=== PATIENT | female | born 1955 | race Caucasian/White ===

== ENCOUNTER 2020-04-22 11:13 | Emergency (ER) | payer MEDICARE ==
[2020-04-22 11:31] VITALS: BP 140/76
--- NOTE | 2020-04-22 11:53 | ED Physician Documentation ---
History of Present Illness - Stated complaint Stated Complaint: RT FOOT INJ - Chief complaint Chief Complaint: Ext Problem - Additonal information Additional information: 64-year-old female presents the emergency department for acute right foot and ankle pain. Reports that this a.m. she was painting and a ladder began to tip she fell forward grabbing onto the wall but fell directly onto the right foot. She had immediate pain and swelling bilaterally as well as under the heel. She has been unable to bear weight. She denies pain or injury elsewhere. No loss of consciousness. She does have a history of previous right foot fracture in 2010. pt is declining pain medications at this time Review of Systems Constitutional: reports: Reviewed and negative Nose: reports: Reviewed and negative Throat: reports: Reviewed and negative Cardiac: reports: Reviewed and negative Respiratory: reports: Reviewed and negative GI: reports: Reviewed and negative Musculoskeletal: reports: Joint pain, Joint swelling (right foot and ankle) Neurologic: reports: Reviewed and negative Psychiatric: reports: Reviewed and negative PD PAST MEDICAL HISTORY - Past Medical History Cardiovascular: None Respiratory: None Endocrine/Autoimmune: None - Present Medications Home Medications: Ambulatory Orders Medication Instructions Recorded Confirmed Hydrocodone/Acetaminophen [Chatham 1 each PO TID #20 tablet 04/22/20 5-325 Tablet] - Allergies Allergies/Adverse Reactions: Allergies Allergy/AdvReac Type Severity Reaction Status Date / Time No Known Drug Allergies Allergy Verified 04/22/20 11:31 PD ED PE EXPANDED - General General: Alert, In Pain - Back Back: Normal exam, Other (No pain elicited with deep palpation of the mid thoracic or lumbar spine. Full range of motion of neck in all planes.). No: Vertebral tenderness, Soft tissue tenderness - Extremities Extremities: Right ankle (Significant swelling and ecchymosis bilateral malleolus with tenderness on the bottom of the heel. 2+ DP pulse. No range of motion attempted secondary to pain. No obvious deformity) Results - Vitals Vitals: Vital Signs - 24 hr 04/22/20 11:25 Temperature 37.6 C H Heart Rate 76 Respiratory 16 Rate Blood Pressure 140/76 H O2 Saturation 99 Oxygen O2 Source Room air - Rads (name of study) right ankle Radiology: Final report received (Mid calcaneal body fracture, please correlate with right foot radiograph) right foot Radiology: Final report received (And slightly displaced fracture involving the lateral aspect of anterior to mid calcaneus) PD MEDICAL DECISION MAKING - ED course Complexity details: reviewed results, considered differential, d/w patient, d/w internet sales consultant (Estrella) ED course: 64-year-old female presents the emergency department with acute right foot and ankle pain after a fall from a ladder this a.m. where she fell directly onto the right leg. She denies hitting her head or losing consciousness. She has no pain elsewhere in her spine lumbar thoracic area. X-ray of the foot does show a calcaneal fracture. I discussed the findings with Dr. De La Rosa on-call for orthopedics. He recommends a well-padded posterior splint and follow-up in his office in 2 to 3 days. He did request a noncontrast CT prior to discharge from the emergency department. Findings were discussed with the patient and her partner at the bedside. A limited prescription for Chatham will be provided. Emergent return precautions discussed Departure - Departure Disposition: 01 Home, Self Care Clinical Impression: Right calcaneal fracture Qualifiers: Encounter type: initial encounter Calcaneus location: unspecified portion of calcaneus Fracture type: closed Fracture alignment: displaced Qualified Code(s): S92.001A - Unspecified fracture of right calcaneus, initial encounter for closed fracture Condition: Stable Record reviewed to determine appropriate education?: Yes Follow-Up: Eliud De La Rosa MD [Provider Admit Priv/Credential] - Within 3 Days Prescriptions: Hydrocodone/Acetaminophen [Chatham 5-325 Tablet] 1 each PO TID #20 tablet Comments: Nilsa unfortunately the x-rays show that you have broken your right calcaneus or heel. This is the type of fracture that typically require surgery in the long-term. Please call Dr. De La Rosa's office today to schedule follow-up. He would like to see you on or Tuesday this week and [place]. The splint that you have been placed and should be kept dry if it gets wet return to the ER to have it replaced. I have prescribed you some Vicodin/Chatham for pain. Please be very careful with this it will make you sleepy. It is very important that you keep your foot elevated as much as possible this will help with swelling. This is also the type of fracture in which she cannot bear any weight on the foot or leg. If at any point you have numbness, a cold extremity, difficulty breathing or chest pain please return immediately to the ER
--- NOTE | 2020-04-22 12:30 | XRAY Report ---
PROCEDURE: Foot 3 View RT INDICATIONS: fall; r/o fx TECHNIQUE: 3 views of the foot were acquired. COMPARISON: None FINDINGS: Bones: Acute slightly comminuted fractures involving lateral aspect of anterior to mid calcaneus is s een with slight lateral displacement of fractured fragment. Fracture line is seen extending to inferi or lateral cortex of the calcaneus. No other fracture or dislocation is noted. No suspicious bony les ions. Soft tissues: No tibiotalar joint effusion. Achilles tendon appears normal. IMPRESSION: Acute comminuted and slightly displaced fracture involving lateral aspect of anterior to mid calcaneu s. Reviewed by: Tab Goins MD on 04/22/2020 12:29 PM PDT Approved by: Tab Goins MD on 04/22/2020 12:29 PM PDT Station ID: [id number]
--- NOTE | 2020-04-22 12:31 | XRAY Report ---
PROCEDURE: Ankle 3 View RT INDICATIONS: fall; r/o fx TECHNIQUE: 3 views of the ankle were acquired. COMPARISON: None FINDINGS: Bones: No acute ankle fractures or dislocations. Ankle mortise is normally aligned. Fracture involv ing the mid calcaneal body is seen. No suspicious bony lesions. Soft tissues: Lateral soft tissue swelling is seen. No tibiotalar joint effusion. Achilles tendon a ppears normal. IMPRESSION: 1. No acute ankle fracture or dislocation. Significant lateral ankle soft tissue swelling. 2. Mid calcaneal body fracture, please correlate with right foot radiograph findings. Reviewed by: Tab Goins MD on 04/22/2020 12:30 PM PDT Approved by: Tab Goins MD on 04/22/2020 12:30 PM PDT Station ID: [id number]
[2020-04-22] MEDS: ACETAMINOPHEN 325 MG TABLET PO STA ×2 (12:33→12:37)
[2020-04-22] MEDS ORDERED: HYDROcod/ACETAM 5/325 MG TABLET PO STA (12:37)
--- NOTE | 2020-04-22 14:02 | CT Report ---
PROCEDURE: LOWER EXTREMITY WO - RT INDICATIONS: calcaneal fx TECHNIQUE: Noncontrast 3 mm axial sections acquired of the right ankle and foot, with coronal and sagittal refor mats. COMPARISON: Ankle and foot radiographs from the same day. FINDINGS: Image quality: Excellent. Bones: As seen on the radiographs, again noted is an acute comminuted fracture involving anterior ca lcaneus with fracture lines extending to calcaneocuboid joint, superior calcaneus adjacent to subtala r joint and to the plantar cortex of mid to posterior calcaneus. There is slight medial and lateral d isplacement of the fractured fragments with up to 3 mm diastases at fracture sites. After 2 mm depres lynn along superior cortex of calcaneus adjacent to subtalar joint is seen. There is also a tiny chip fracture involving posterior lateral corner of inferior talus adjacent to subtalar joint with minima lly displaced fracture fragment. There is subtle linear lucency traversing tip of lateral malleolus, a subtle nondisplaced fracture cannot be entirely excluded. This is best seen on sagittal image #20. No other fracture or dislocation is seen. Osteoarthritic changes are noted in midfoot and forefoot cayla ints. Mild osteoarthritic changes in talonavicular joint, tibiotalar joint and subtalar joint are als o seen. No suspicious intraosseous lesion. Soft tissues: Marked soft tissue swelling surrounding ankle joint is seen particularly over lateral malleolus. There is suggestion of small to moderate tibiotalar joint effusion. Plantar fascia is aquilino sly intact. Achilles tendon is intact. No full-thickness ankle tendon rupture is seen. IMPRESSION: 1. Acute comminuted fracture involving anterior calcaneus with fracture line extending to subtalar cayla int, plantar cortex of calcaneus, and calcaneocuboid joint space. Slightly displaced fractured fragme nts are seen. Slight depression at superior cortex of calcaneus along subtalar joint is also seen. 2. Suggestion of tiny chip fracture involving posterior lateral corner of inferior talus adjacent to subtalar joint. 3. Questionable lucency traversing tip of lateral malleolus concerning for a subtle nondisplaced frac ture. 4. Marked soft tissue swelling around ankle joint particularly over lateral malleolus. Small to moder ate tibiotalar joint effusion and subtalar joint effusion. No gross full-thickness tendon rupture. 5. Osteoarthritic changes throughout ankle and foot. Reviewed by: Tab Goins MD on 04/22/2020 2:00 PM PDT Approved by: Tab Goins MD on 04/22/2020 2:00 PM PDT Station ID: [id number]
== END 2020-04-22 14:14 | disposition home or self-care (01) ==
LOC: ED 11:13
DX: S92.021A Displaced fracture of anterior process of right calcaneus, initial encounter for closed fracture (principal); W11.XXXA Fall on and from ladder, initial encounter; Y93.89 Activity, other specified
CPT/HCPCS: 73610; 73630; 73700; 99283; A9270

== ENCOUNTER 2020-05-01 16:20 | Outpatient (CLI) | payer MEDICARE ==
--- NOTE | 2020-05-01 16:24 | XRAY Report ---
PROCEDURE: Calcaneus RT INDICATIONS: R CALCANEUS FX TECHNIQUE: Two views of the calcaneus were acquired. COMPARISON: 04/22/2020 FINDINGS: Bones: Redemonstration of comminuted, intra-articular fracture of the mid to anterior calcaneus. Alig nment appears stable. Fracture line appears more conspicuous likely related to reactive changes of fr acture healing. Remainder of the imaged osseous structures appear intact. No suspicious bony lesions. Soft tissues: No suspicious calcifications. Achilles tendon appears normal. Persistent soft tissue swelling overlying the right foot and lateral malleolus. IMPRESSION: Stable appearance and alignment of comminuted, minimally displaced fracture of the calcaneus with int ra-articular extension to the subtalar joint. Reviewed by: Terrance Rodrigues MD on 05/01/2020 4:23 PM PDT Approved by: Terrance Rodrigues MD on 05/01/2020 4:23 PM PDT Station ID: [id number]
--- NOTE | 2020-05-01 17:01 | XRAY Report ---
PROCEDURE: Ankle 3 View RT INDICATIONS: R ANKLE PAIN TECHNIQUE: 3 views of the ankle were acquired. COMPARISON: 04/22/2020 FINDINGS: Bones: Redemonstration of comminuted intra-articular fracture of the mid and anterior right calcaneus . There is extension to the subtalar joint. Persistent soft tissue swelling of the right ankle. Remai nder of the visualized osseous structures appear intact.. Ankle mortise is normally aligned. No santy picious bony lesions. Soft tissues: No tibiotalar joint effusion. Achilles tendon appears normal. IMPRESSION: Stable alignment and appearance of known comminuted, intra-articular fracture of the right calcaneus. Reviewed by: Terrance Rodrigues MD on 05/01/2020 4:59 PM PDT Approved by: Terrance Rodrigues MD on 05/01/2020 4:59 PM PDT Station ID: [id number]
== END 2020-05-01 23:59 | disposition home or self-care (01) ==
LOC: DI.WCP 16:20
PROVIDERS: ATTEND Orthopaedic Surgery
DX: S92.061D Displaced intraarticular fracture of right calcaneus, subsequent encounter for fracture with routine healing (principal)

== ENCOUNTER 2020-05-29 07:00 | Outpatient (CLI) | payer MEDICARE ==
--- NOTE | 2020-05-29 14:20 | XRAY Report ---
PROCEDURE: Calcaneus RT INDICATIONS: FRACTTURE OF RT CALCANEUS TECHNIQUE: 2 views of the calcaneus were acquired. COMPARISON: 05/01/2020 FINDINGS: Bones: Redemonstration of comminuted, intra-articular fracture of the mid and anterior calcaneus. Sta ble alignment. Increased callus formation and decreased conspicuity of the fracture line. No suspicio us bony lesions. Soft tissues: No suspicious calcifications. Achilles tendon appears normal. IMPRESSION: Continued radiographic evidence for progress towards fracture healing of comminuted, intra-articular fracture of the calcaneus in unchanged alignment. Reviewed by: Terrance Rodrigues MD on 05/29/2020 2:18 PM PST Approved by: Terrance Rodrigues MD on 05/29/2020 2:18 PM PST Station ID: [id number]
== END 2020-05-29 23:59 | disposition home or self-care (01) ==
LOC: DI.N 07:00
PROVIDERS: ATTEND Orthopaedic Surgery
DX: S92.061D Displaced intraarticular fracture of right calcaneus, subsequent encounter for fracture with routine healing (principal)

== ENCOUNTER 2020-07-18 18:02 | Outpatient (CLI) | payer MEDICARE ==
--- NOTE | 2020-07-18 13:57 | XRAY Report ---
PROCEDURE: Calcaneus RT INDICATIONS: UNSPECIFIED FX OF R CALCANEUS TECHNIQUE: Two views of the calcaneus were acquired. COMPARISON: 05/29/2020 FINDINGS: Bones: No new fractures or dislocations. No suspicious bony lesions. Continued healing of calcaneu s fracture. Soft tissues: No suspicious calcifications. Achilles tendon appears normal. IMPRESSION: Continued healing of right calcaneus fracture, no new injury seen. Near-normal anatomic alignment. Reviewed by: Renny Rea MD on 07/18/2020 1:55 PM PST Approved by: Renny Rea MD on 07/18/2020 1:55 PM PST Station ID: [id number]
== END 2020-07-18 23:59 | disposition home or self-care (01) ==
LOC: DI.N 18:02
PROVIDERS: ATTEND Orthopaedic Surgery
DX: S92.001A Unspecified fracture of right calcaneus, initial encounter for closed fracture (principal)

== ENCOUNTER 2020-09-29 07:00 | Outpatient (CLI) | payer MEDICARE ==
--- NOTE | 2020-09-29 16:20 | XRAY Report ---
PROCEDURE: Calcaneus RT INDICATIONS: RIGHT CALCANEOUS FRACTURE TECHNIQUE: Two views of the calcaneus were acquired. COMPARISON: Prior calcaneal plain films 07/18/2020 and 05/29/2020. FINDINGS: Bones: No new fractures or dislocations. No suspicious bony lesions. Continued healing prior calca gian fracture. Soft tissues: No suspicious calcifications. Achilles tendon appears normal. IMPRESSION: Continued healing prior calcaneal fracture, with reference to the earlier CT scanning when the mid oliver dy calcaneal fracture was still detectable. Reviewed by: Renny Rea MD on 09/29/2020 4:19 PM PDT Approved by: Renny Rea MD on 09/29/2020 4:19 PM PDT Station ID: [id number]
== END 2020-09-29 23:59 | disposition home or self-care (01) ==
LOC: DI.N 07:00
PROVIDERS: ATTEND Orthopaedic Surgery
DX: S92.061A Displaced intraarticular fracture of right calcaneus, initial encounter for closed fracture (principal)

== ENCOUNTER 2020-10-23 10:49 | Outpatient (CLI) | payer MEDICARE | END 2020-10-23 10:50 | disposition home or self-care (01) | LOC: LAB.N 10:49 | PROVIDERS: ATTEND Physician Assistant | DX: Z01.812 Encounter for preprocedural laboratory examination (principal); Z20.822 Contact with and (suspected) exposure to COVID-19 ==

== ENCOUNTER 2020-10-29 12:38 | Day surgery (SDC) | payer MEDICARE ==
--- OUTSIDE RECORDS SUMMARY | 2020-10-29 12:40 | EXTERNAL MEDICAL SUMMARY RPT | Continuity of Care Document ---
:1955 Demographics Phone Unavailable Preferred Language Singaporean Marital Status Unknown Yazidi Affiliation Unknown Race Unknown Ethnic Group Unknown Author Organization [place] Address [address] [phone] Phone Problems date description facility [id number] Pain in right ankle and joints of [facility] Social History date description facility [id number]
[2020-10-29] MEDS ORDERED: ceFAZolin 2 GM/50 ML 2 GM/50 ML BAG IV ONE (12:50)
[2020-10-29] MEDS ORDERED: ACETAMINOPHEN 1,000 MG/100 ML 100 ML IV ONE (12:51)
[2020-10-29] MEDS ORDERED: CELECOXIB 100 MG CAPSULE PO ONE (12:51)
[2020-10-29] MEDS ORDERED: LACTATED RINGERS 1,000 ML IV ONE ×2 (13:23→17:25)
--- NOTE | 2020-10-29 14:12 | ANESTHESIA ---
Pre-Anesthesia VS, & Labs - Diagnosis dislocating peroneal tendon right ankle - Procedure repair of dislocating peroneal tendon right ankle Vital Signs: Temp Pulse Resp BP Pulse Ox 36.6 C 75 16 184/80 H 100 10/29/20 12:58 10/29/20 12:58 10/29/20 12:58 10/29/20 12:58 10/29/20 12:58 Height: 5 ft 5 in Weight (kg): 59.6 kg Body Mass Index: 21.8 BMI Classification: Healthy weight - NPO >8 hours - Is Patient ?: Yes Home Medications and Allergies Home Medications: Ambulatory Orders No Known Home Medications 10/23/20 No Known Home Medications 10/23/20 Allergies/Adverse Reactions: Allergies Allergy/AdvReac Type Severity Reaction Status Date / Time No Known Drug Allergies Allergy Verified 04/22/20 11:31 Anes History & Medical History - Medical History Cardiovascular: reports: None Pulmonary: reports: None Gastrointestinal: reports: None Urinary: reports: None Musculoskeletal: reports: Osteoarthritis Endocrine/Autoimmune: reports: None Skin: reports: Other Smoking Status: Never smoker History of Cancer?: No - Surgical History Eyes Ears Nose Throat (EENT): reports: Cataracts, Tonsil/Adenoidectomy, Other Gynecologic: reports: Breast implants Exam General: Alert Dental: WNL Mouth Opening: Greater than 4 Fingerbreadths Neck Mobility: Normal Mallampati classification: I Thyromental Distance: greater than 6 cm Respiratory: Lungs clear Cardiovascular: Regular rate Plan Anesthesia Type: Spinal Consent for Procedure(s) Verified and Reviewed: Yes Code Status: Attempt Resuscitation ASA classification: 1-Healthy patient Is this case an emergency?: Yes
[2020-10-29] MEDS ORDERED: ePHEDrine 50 MG/ML VIAL IVP PRN (14:19)
[2020-10-29] MEDS ORDERED: METOCLOPRAMIDE 10 MG/2 ML VIAL IVP PRN (14:19)
[2020-10-29] MEDS ORDERED: MORPHINE 2 MG/ML CARPUJECT IVP PRN (14:19)
[2020-10-29] MEDS ORDERED: ATROPINE ABBOJECT 1 MG/10 ML SYRINGE IVP PRN (14:19)
[2020-10-29] MEDS ORDERED: fentaNYL 100 MCG/2 ML VIAL IVP PRN (14:19)
[2020-10-29] MEDS ORDERED: ONDANSETRON 4 MG/2 ML VIAL IVP PRN (14:19)
[2020-10-29] MEDS ORDERED: NALOXONE 0.4 MG/ML VIAL IVP PRN (14:19)
[2020-10-29] MEDS ORDERED: HYDROmorphone 0.5 MG/0.5 ML SYRINGE IVP PRN (14:19)
[2020-10-29] MEDS ORDERED: MIDAZOLAM 2 MG/2 ML VIAL ONE (14:25)
[2020-10-29] MEDS ORDERED: LIDOCAINE-MPF 2% 5 ML VIAL ONE (14:27)
[2020-10-29] MEDS ORDERED: fentaNYL 100 MCG/2 ML VIAL ONE (14:27)
[2020-10-29] MEDS ORDERED: ROPIVACAINE 0.5% PF 20 ML AMPULE ONE (14:27)
[2020-10-29] MEDS ORDERED: PROPOFOL 200 MG/20 ML VIAL IVP ONE (14:31)
[2020-10-29] MEDS ORDERED: KETOROLAC 15 MG/ML VIAL IVP STA (14:38)
[2020-10-29] MEDS ORDERED: oxyCODONE 5 MG TABLET PO PRN (14:38)
[2020-10-29] MEDS ORDERED: LACTATED RINGERS 1,000 ML IV SCH (15:00)
--- NOTE | 2020-10-29 16:56 | OPERATIVE REPORT ---
Operative Report - General Procedure Date: 10/29/20 Planned Procedure: Repair of dislocating peroneal tendons right ankle Pre-Op Diagnosis: Recurrent peroneal tendon dislocation right ankle Procedure Performed: Repair of perineal tendon dislocation right ankle with groove deepening and superior peroneal retinaculoplasty Post Op Diagnosis: Same as preop diagnosis - Procedure Note Primary Surgeon: Eliud De La Rosa MD Secondary Surgeon: Greg WAY Anesthesia Provider: Milton Sandra CRNA Anesthesia Technique: General ET tube, Regional block Estimated Blood Loss (mL): 10 Indications: This is a 64-year-old woman with a 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 This is become very symptomatic over the past several weeks. The peroneal tendons have dislocated several times and her pain is quite marked over the lateral malleolar area, especially retromalleolar area of the lateral malleolus. She is also had a calcaneus fracture in the recent past. Her pain is primarily retromalleolar and not over the lateral h indfoot. Her physical exam showed dislocation of the peroneal tendons that could be reproduced easily and seemed to reproduce her pain as well. In other words, the peroneal tendon could be easily subluxed out of its fibular groove.Her preoperative MRI scan did not show any tendon abnormality to the peroneal tendons. Findings: The peroneal tendons were dislocated at the time of surgery before incision was made. At the time of surgery there was some hypertrophy of the peroneus longus but there were no tears of either the peroneus brevis or the peroneus longus. She did have a rather shallow sulcus for the peroneal tendons. The superior retinaculum was attenuated.The right ankle joint is stable. Complications: None - Other Other Information/Narrative: The patient was brought to the operating room and after anesthesia was achieved, she was placed in the lateral decubitus position. She was secured in this position with a beanbag. A pneumatic tourniquet was applied to the proximal right thigh over cast padding to protect skin. The right lower extremity was prepped and draped in sterile manner in the usual fashion. A timeout procedure was performed by the entire operating room team and all were in agreement. A incision just posterior to the fibula was made this was started above the lateral malleolus and extended distally around the inferior border of the lateral malleolus. The tourniquet had been elevated after exsanguination to 250 mmHg. The sural nerve was protected. The peroneal tendon sheath was opened posteriorly. The peroneal tendons were easily dislocated as they were dislocated prior to incision. The tendons were inspected and other than some hypertrophy of the peroneus longus, there were no tears. A anterior periosteal flap was elevated, 1 x 3 cm the Synaptic[employer] resurfacing tool was used to make a groove within the posterior fibula. This was the deepening groove, measured about 6 mm in depth and about 5 mm in length. The width of the groove was approximately a centimeter or slightly less. Small amount of bone wax was inserted to the cancellous bone after a bone impactor was used to impact the cancellous bone gently. The tendons were reduced and showed marked improvement and stability with range of motion. 2 Arthrex all suture 1.35 anchors were in serted in the posterior cortex of the tunnel. This allowed repair directly to the periosteal flap that had been created. 4 sutures were taken through the flap. Motion was checked and the tendons did glide with dorsiflexion and plantar flexion without dislocation. Subcutaneous tissue was closed with 2-0 Monocryl and the skin was closed with a running 3-0 subcuticular suture, Dermabond, silver dressing, short leg padded fiberglass splint with ankle neutral dorsiflexion. She received 2 g of Ancef prior to the incision. Tourniquet time was 68 minutes. Blood loss was minimal. She tolerated procedure well. A physician practice assistant was utilized, felt to be necessary to protect vital structures and provide exposure to perform the surgery as well as wound closure and splint application.
--- NOTE | 2020-10-29 17:52 | ANESTHESIA POST OP EVALUATION ---
Anesthesia Post Eval - Post Anesthesia Eval Vitals: Last Vital Signs Temp 36.4 C L 10/29/20 17:48 Pulse 64 10/29/20 17:48 Resp 16 10/29/20 17:48 BP 143/71 H 10/29/20 17:48 Pulse Ox 97 10/29/20 17:48 CV Function Including HR & BP: Stable Pain Control: Satisfactory Nausea & Vomiting: Negative Mental Status: Baseline Respiratory Status: Airway Patent Hydration Status: Satisfactory Anesthesia Complications: None
[2020-10-29 18:36] VITALS: BP 142/66
== END 2020-10-29 18:58 | disposition home or self-care (01) ==
LOC: SDS 12:38 → MS2 17:48 → SDS 18:58
PROVIDERS: ATTEND Orthopaedic Surgery
PROC: 0LSS0ZZ Reposition Right Ankle Tendon, Open Approach (ICD-10-PCS; principal; 2020-10-29 13:45)
DX: S86.391A Other injury of muscle(s) and tendon(s) of peroneal muscle group at lower leg level, right leg, initial encounter (principal)
CPT/HCPCS: 27675; A9270; J0131; J0690; J7120

== ENCOUNTER 2021-05-12 11:00 | Outpatient (CLI) | payer MEDICARE ==
[2021-05-12 18:25] LABS: BASOPHILS % (AUTO) 1.3 %; EOSINOPHILS % (AUTO) 1.3 %; HCT - HEMATOCRIT 42.5 % (37.0-47.0); HGB - HEMOGLOBIN 14.1 g/dL (12.0-16.0); LYMPHOCYTES # (AUTO) 1.1 10^3/uL (1.5-3.5); LYMPHOCYTES % (AUTO) 33.4 %; MEAN CORPUSCULAR HEMOGLOBIN 31.5 pg (27.0-31.0); MEAN CORPUSCULAR HGB CONC 33.2 g/dL (32.0-36.0); MEAN CORPUSCULAR VOLUME 94.9 fL (81.0-99.0); MEAN PLATELET VOLUME 9.3 fL (7.9-10.8); MONOCYTES # (AUTO) 0.2 10^3/uL (0.0-1.0); MONOCYTES % (AUTO) 6.9 %; NEUTROPHILS # (AUTO) 1.8 10^3/uL (1.5-6.6); NEUTROPHILS % (AUTO) 56.8 %; PLT - PLATELET COUNT 358 10^3/uL (130-450); RED BLOOD COUNT 4.48 10^6/uL (4.20-5.40); RED CELL DISTRIBUTION WIDTH 11.7 % (12.0-15.0); WHITE BLOOD COUNT 3.2 x10^3/uL (4.8-10.8)
[2021-05-12 18:32] LABS: BILIRUBIN,URINE NEGATIVE (NEGATIVE); GLUCOSE, URINE (UA) NEGATIVE (NEGATIVE); KETONES,URINE (UA) 40 mg/dL (NEGATIVE); LEUKOCYTE ESTERASE, URINE NEGATIVE (NEGATIVE); NITRITE,URINE NEGATIVE (NEGATIVE); OCCULT BLOOD,URINE MODERATE (NEGATIVE); PH,URINE 5.5 PH (5.0-7.5); PROTEIN,URINE NEGATIVE (NEGATIVE); UROBILINOGEN,URINE 0.2 (NORMAL) E.U./dL (NORMAL)
[2021-05-12 18:40] LABS: CLARITY,URINE CLOUDY (CLEAR)
[2021-05-12 18:55] LABS: AMORPHOUS SEDIMENT,UR Marked /LPF; BACTERIA,URINE None Seen /HPF (None Seen); SQUAMOUS EPITHELIAL CELL,UR NONE SEEN (<= Few); WBC,URINE 0-3 /HPF (0-5)
[2021-05-12 19:00] LABS: ALBUMIN 4.9 g/dL (3.2-5.5); ALBUMIN/GLOBULIN RATIO 1.8 (1.0-2.2); ALKALINE PHOSPHATASE 50 IU/L (42-121); ALT ALANINE AMINOTRANSFERASE 17 IU/L (10-60); AST ASPARTATE AMINOTRANSFERASE 19 IU/L (10-42); BILIRUBIN,TOTAL 2.4 mg/dL (0.2-1.0); BUN - BLOOD UREA NITROGEN 14 mg/dL (6-20); CALCIUM 9.7 mg/dL (8.5-10.3); CARBON DIOXIDE - CO2 28 mmol/L (21-32); CHLORIDE 102 mmol/L (101-111); CHOL/HDL RATIO 3.4 (<4.4); CHOLESTEROL 249 mg/dL; CREATININE 0.6 mg/dL (0.4-1.0); GFR - MDRD 100 (>89); GLUCOSE 102 mg/dL (70-100); HDL CHOLESTEROL 73 mg/dL; LDL CHOLESTEROL,CALCULATED 164 mg/dL; LDL/HDL RATIO 2.2 (<4.4); SODIUM 140 mmol/L (135-145); TOTAL PROTEIN 7.7 g/dL (6.7-8.2); TRIGLYCERIDES 61 mg/dL; VLDL CHOLESTEROL 12 mg/dL
[2021-05-12 19:07] LABS: THYROID STIMULATING HORMONE 1.26 uIU/mL (0.34-5.60)
[2021-05-12 20:09] LABS: ESTIMATED AVERAGE GLUCOSE 105 mg/dL (70-100); HEMOGLOBIN A1c% 5.3 % (4.27-6.07)
== END 2021-05-12 23:59 | disposition home or self-care (01) ==
LOC: LAB.WCP 11:00
PROVIDERS: ATTEND Nurse Practitioner
DX: Z00.00 Encounter for general adult medical examination without abnormal findings (principal); R53.83 Other fatigue; Z13.220 Encounter for screening for lipoid disorders; Z13.1 Encounter for screening for diabetes mellitus
CPT/HCPCS: 36415; 80053; 80061; 81001; 83036; 83721; 84443; 85025; 87086

== ENCOUNTER 2021-06-12 11:03 | Outpatient (CLI) | payer MEDICARE ==
[2021-06-12 18:14] LABS: BASOPHILS % (AUTO) 0.8 %; EOSINOPHILS # (AUTO) 0.1 10^3/uL (0.0-0.7); HGB - HEMOGLOBIN 13.2 g/dL (12.0-16.0); LYMPHOCYTES # (AUTO) 1.4 10^3/uL (1.5-3.5); LYMPHOCYTES % (AUTO) 40.2 %; MEAN CORPUSCULAR HEMOGLOBIN 31.1 pg (27.0-31.0); MEAN CORPUSCULAR VOLUME 94.1 fL (81.0-99.0); MEAN PLATELET VOLUME 9.5 fL (7.9-10.8); MONOCYTES # (AUTO) 0.2 10^3/uL (0.0-1.0); MONOCYTES % (AUTO) 6.5 %; NEUTROPHILS # (AUTO) 1.8 10^3/uL (1.5-6.6); NEUTROPHILS % (AUTO) 50.2 %; PLT - PLATELET COUNT 335 10^3/uL (130-450); RED BLOOD COUNT 4.25 10^6/uL (4.20-5.40); RED CELL DISTRIBUTION WIDTH 11.8 % (12.0-15.0); WHITE BLOOD COUNT 3.5 x10^3/uL (4.8-10.8)
[2021-06-12 19:51] LABS: BILIRUBIN,URINE NEGATIVE (NEGATIVE); GLUCOSE, URINE (UA) NEGATIVE (NEGATIVE); KETONES,URINE (UA) NEGATIVE (NEGATIVE); LEUKOCYTE ESTERASE, URINE NEGATIVE (NEGATIVE); NITRITE,URINE NEGATIVE (NEGATIVE); OCCULT BLOOD,URINE TRACE-INTA (NEGATIVE); PROTEIN,URINE NEGATIVE (NEGATIVE); UROBILINOGEN,URINE 0.2 (NORMAL) E.U./dL (NORMAL)
[2021-06-12 19:57] LABS: CLARITY,URINE CLEAR (CLEAR)
[2021-06-12 20:23] LABS: BACTERIA,URINE Rare /HPF (None Seen); RBC,URINE 0-5 /HPF (0-5); SQUAMOUS EPITHELIAL CELL,UR RARE Squamous (<= Few); WBC,URINE 0-3 /HPF (0-5)
== END 2021-06-12 23:59 | disposition home or self-care (01) ==
LOC: LAB.WCP 11:03
PROVIDERS: ATTEND Nurse Practitioner
DX: R31.9 Hematuria, unspecified (principal); D72.819 Decreased white blood cell count, unspecified
CPT/HCPCS: 36415; 81001; 85025; 87086

== ENCOUNTER 2021-06-23 11:04 | Outpatient (CLI) | payer MEDICARE ==
--- NOTE | 2021-07-01 14:04 | Mammography Report ---
BILATERAL DIGITAL SCREENING MAMMOGRAM WITH AUGMENTATION: 06/23/2021 CLINICAL: Routine screening. No prior exams were available for comparison. There are scattered fibroglandular elements in both br easts. There are regional fine calcifications in the left breast at 7 o'clock anterior depth. No other significant masses, calcifications, or other findings are seen in either breast. IMPRESSION: INCOMPLETE: NEEDS ADDITIONAL IMAGING EVALUATION The regional fine calcifications in the left breast are indeterminate. Mediolateral, spot magnificat ion, and additional views are recommended. This exam was interpreted at Station ID: [id number]. NOTE: For mammograms, a report in lay terms will be sent to the patient. Approximately 15% of breast malignancies will not be visualized mammographically. In the management of a palpable breast mass, a negative mammogram must not discourage biopsy of a clinically suspicious lesion. Electronically Signed By: Guy Engle M.D. ddp/:06/30/2021 08:37:30 ACR BI-RADS Category 0: Incomplete [id number] PARENCHYMAL PATTERN: (A) - The breast(s) demonstrate(s) scattered fibroglandular densities. BI-RADS CATEGORY: (0) - 0 RECOMMENDATION: (ADDMAM) - Recommend additional mammographic views. [id number] Immediate follow-up LATERALITY: (B)
== END 2021-06-23 11:05 | disposition home or self-care (01) ==
LOC: DI.N 11:04
PROVIDERS: ATTEND Nurse Practitioner
DX: Z12.31 Encounter for screening mammogram for malignant neoplasm of breast (principal); R92.8 Other abnormal and inconclusive findings on diagnostic imaging of breast

== ENCOUNTER 2021-07-15 08:00 | Outpatient (CLI) | payer MEDICARE ==
[2021-07-15 13:31] LABS: BILIRUBIN,URINE NEGATIVE (NEGATIVE); GLUCOSE, URINE (UA) NEGATIVE (NEGATIVE); KETONES,URINE (UA) NEGATIVE (NEGATIVE); LEUKOCYTE ESTERASE, URINE NEGATIVE (NEGATIVE); NITRITE,URINE NEGATIVE (NEGATIVE); OCCULT BLOOD,URINE TRACE-INTA (NEGATIVE); PROTEIN,URINE NEGATIVE (NEGATIVE); UROBILINOGEN,URINE 0.2 (NORMAL) E.U./dL (NORMAL)
[2021-07-15 13:33] LABS: CLARITY,URINE CLEAR (CLEAR)
[2021-07-15 15:06] LABS: RBC,URINE 0-5 /HPF (0-5); WBC,URINE 0-3 /HPF (0-5)
[2021-07-15 15:07] LABS: BACTERIA,URINE None Seen /HPF (None Seen); SQUAMOUS EPITHELIAL CELL,UR RARE Squamous (<= Few)
== END 2021-07-15 23:59 ==
LOC: LAB.WCP 08:00
PROVIDERS: ATTEND Nurse Practitioner
DX: R31.9 Hematuria, unspecified (principal)
CPT/HCPCS: 81001; 87086

== ENCOUNTER 2022-05-28 07:32 | Outpatient (CLI) | payer MEDICARE ==
[2022-05-28 12:13] LABS: BASOPHILS # (AUTO) 0.1 10^3/uL (0.0-0.1); BASOPHILS % (AUTO) 1.5 %; EOSINOPHILS # (AUTO) 0.1 10^3/uL (0.0-0.7); EOSINOPHILS % (AUTO) 2.1 %; HCT - HEMATOCRIT 43.1 % (37.0-47.0); HGB - HEMOGLOBIN 14.2 g/dL (12.0-16.0); LYMPHOCYTES # (AUTO) 1.3 10^3/uL (1.5-3.5); LYMPHOCYTES % (AUTO) 39.9 %; MEAN CORPUSCULAR HEMOGLOBIN 31.3 pg (27.0-31.0); MEAN CORPUSCULAR HGB CONC 32.9 g/dL (32.0-36.0); MEAN CORPUSCULAR VOLUME 95.1 fL (81.0-99.0); MEAN PLATELET VOLUME 9.6 fL (7.9-10.8); MONOCYTES # (AUTO) 0.2 10^3/uL (0.0-1.0); MONOCYTES % (AUTO) 6.3 %; NEUTROPHILS # (AUTO) 1.7 10^3/uL (1.5-6.6); NEUTROPHILS % (AUTO) 49.9 %; PLT - PLATELET COUNT 359 10^3/uL (130-450); RED BLOOD COUNT 4.53 10^6/uL (4.20-5.40); RED CELL DISTRIBUTION WIDTH 11.3 % (12.0-15.0); WHITE BLOOD COUNT 3.4 x10^3/uL (4.8-10.8)
[2022-05-28 12:19] LABS: BILIRUBIN,URINE NEGATIVE (NEGATIVE); GLUCOSE, URINE (UA) NEGATIVE (NEGATIVE); KETONES,URINE (UA) NEGATIVE (NEGATIVE); LEUKOCYTE ESTERASE, URINE NEGATIVE (NEGATIVE); NITRITE,URINE NEGATIVE (NEGATIVE); OCCULT BLOOD,URINE SMALL (NEGATIVE); PROTEIN,URINE NEGATIVE (NEGATIVE); UROBILINOGEN,URINE 0.2 (NORMAL) E.U./dL (NORMAL)
[2022-05-28 12:27] LABS: CLARITY,URINE CLEAR (CLEAR)
[2022-05-28 12:32] LABS: BACTERIA,URINE Rare /HPF (None Seen); RBC,URINE 0-5 /HPF (0-5); SQUAMOUS EPITHELIAL CELL,UR NONE SEEN (<= Few); WBC,URINE 0-3 /HPF (0-5)
[2022-05-28 12:56] LABS: THYROID STIMULATING HORMONE 1.66 uIU/mL (0.34-5.60)
[2022-05-28 12:58] LABS: ALBUMIN 4.8 g/dL (3.2-5.5); ALBUMIN/GLOBULIN RATIO 1.7 (1.0-2.2); ALKALINE PHOSPHATASE 55 IU/L (42-121); ALT ALANINE AMINOTRANSFERASE 44 IU/L (10-60); AST ASPARTATE AMINOTRANSFERASE 33 IU/L (10-42); BILIRUBIN,TOTAL 1.5 mg/dL (0.2-1.0); BUN - BLOOD UREA NITROGEN 20 mg/dL (6-20); CALCIUM 9.6 mg/dL (8.5-10.3); CARBON DIOXIDE - CO2 28 mmol/L (21-32); CHLORIDE 102 mmol/L (101-111); CHOL/HDL RATIO 2.9 (<4.4); CHOLESTEROL 193 mg/dL; CREATININE 0.6 mg/dL (0.4-1.0); GFR - MDRD 99 (>89); GLUCOSE 113 mg/dL (70-100); HDL CHOLESTEROL 67 mg/dL; LDL CHOLESTEROL,CALCULATED 116 mg/dL; LDL/HDL RATIO 1.7 (<4.4); POTASSIUM 4.5 mmol/L (3.5-5.0); SODIUM 142 mmol/L (135-145); TOTAL PROTEIN 7.6 g/dL (6.7-8.2); TRIGLYCERIDES 48 mg/dL; VLDL CHOLESTEROL 10 mg/dL
== END 2022-05-28 07:33 | disposition home or self-care (01) ==
LOC: LAB.N 07:32
PROVIDERS: ATTEND Nurse Practitioner
DX: Z00.00 Encounter for general adult medical examination without abnormal findings (principal); Z13.220 Encounter for screening for lipoid disorders; R31.9 Hematuria, unspecified; R53.83 Other fatigue
CPT/HCPCS: 36415; 80053; 80061; 81001; 81003; 83721; 84443; 85025; 87086

== ENCOUNTER 2022-06-23 15:12 | Outpatient (CLI) | payer MEDICARE ==
--- NOTE | 2022-06-23 16:35 | DEXA Report ---
PROCEDURE: Dexa Spine and/or Hip INDICATIONS: POST MENOPAUSAL TECHNIQUE: Dual energy x-ray absorptiometry (DXA) was performed on a [email or web address] System. Regions measur ed are the AP Spine, femoral neck, and if needed forearm. COMPARISON: None. FINDINGS: Lumbar Spine: Bone Mineral Density 0.903 g/cm/cm,T score -2.3. Left Femoral Neck: Bone Mineral Density 0.632 g/cm/cm, T score -2.9. Left Hip: Bone Mineral Density 0.737 g/cm/cm,T score -2.1. (T score greater or equal to -1.0: NORMAL) (T score from -1.1 to -2.4: OSTEOPENIA) (T score less than or equal to -2.5 to: OSTEOPOROSIS) Impression: Osteoporosis. Patients with diagnosis of osteoporosis or osteopenia should have regular bone mineral density assess ment. For those eligible for Medicare, routine testing is allowed once every 2 years. Testing frequ ency can be increased for patients who have rapidly progressing disease or for those who are receivin g medical therapy to restore bone mass. Reviewed by: Tab Goins MD on 06/23/2022 4:33 PM PST Approved by: Tab Goins MD on 06/23/2022 4:33 PM PST Station ID: [id number]
== END 2022-06-23 15:13 | disposition home or self-care (01) ==
LOC: DI 15:12
PROVIDERS: ATTEND Nurse Practitioner
DX: M81.0 Age-related osteoporosis without current pathological fracture (principal); Z78.0 Asymptomatic menopausal state

== ENCOUNTER 2022-11-30 07:10 | Outpatient (CLI) | payer MEDICARE ==
[2022-11-30 12:05] LABS: ESTIMATED AVERAGE GLUCOSE 103 mg/dL (70-100); HEMOGLOBIN A1c% 5.2 % (4.27-6.07)
== END 2022-11-30 07:11 | disposition home or self-care (01) ==
LOC: LAB.N 07:10
PROVIDERS: ATTEND Nurse Practitioner
DX: R73.03 Prediabetes (principal)
CPT/HCPCS: 36415; 83036

== ENCOUNTER 2023-05-25 08:05 | Outpatient (CLI) | payer MEDICARE ==
[2023-05-25 11:48] LABS: BASOPHILS % (AUTO) 1.2 %; EOSINOPHILS # (AUTO) 0.1 10^3/uL (0.0-0.7); EOSINOPHILS % (AUTO) 2.8 %; HCT - HEMATOCRIT 43.5 % (37.0-47.0); HGB - HEMOGLOBIN 14.5 g/dL (12.0-16.0); LYMPHOCYTES # (AUTO) 1.2 10^3/uL (1.5-3.5); LYMPHOCYTES % (AUTO) 45.6 %; MEAN CORPUSCULAR HEMOGLOBIN 31.4 pg (27.0-31.0); MEAN CORPUSCULAR HGB CONC 33.3 g/dL (32.0-36.0); MEAN CORPUSCULAR VOLUME 94.2 fL (81.0-99.0); MEAN PLATELET VOLUME 9.5 fL (7.9-10.8); MONOCYTES # (AUTO) 0.2 10^3/uL (0.0-1.0); MONOCYTES % (AUTO) 6.7 %; NEUTROPHILS # (AUTO) 1.1 10^3/uL (1.5-6.6); NEUTROPHILS % (AUTO) 43.3 %; PLT - PLATELET COUNT 379 10^3/uL (130-450); RED BLOOD COUNT 4.62 10^6/uL (4.20-5.40); RED CELL DISTRIBUTION WIDTH 11.4 % (12.0-15.0); WHITE BLOOD COUNT 2.5 x10^3/uL (4.8-10.8)
[2023-05-25 11:58] LABS: SLIDE REVIEW? Indicated
[2023-05-25 12:02] LABS: ESTIMATED AVERAGE GLUCOSE 97 mg/dL (70-100)
[2023-05-25 12:04] LABS: ALBUMIN 4.8 g/dL (3.2-5.5); ALKALINE PHOSPHATASE 47 IU/L (42-121); ALT ALANINE AMINOTRANSFERASE 15 IU/L (10-60); AST ASPARTATE AMINOTRANSFERASE 18 IU/L (10-42); BILIRUBIN,TOTAL 2.3 mg/dL (0.2-1.0); BUN - BLOOD UREA NITROGEN 17 mg/dL (6-20); CALCIUM 9.7 mg/dL (8.5-10.3); CARBON DIOXIDE - CO2 29 mmol/L (21-32); CHLORIDE 103 mmol/L (101-111); CHOL/HDL RATIO 2.9 (<4.4); CHOLESTEROL 205 mg/dL; CREATININE 0.7 mg/dL (0.6-1.3); GFR - MDRD 83 (>89); GLUCOSE 105 mg/dL (74-104); HDL CHOLESTEROL 70 mg/dL; LDL CHOLESTEROL,CALCULATED 119 mg/dL; LDL/HDL RATIO 1.7 (<4.4); POTASSIUM 4.2 mmol/L (3.5-4.5); SODIUM 139 mmol/L (135-145); TOTAL PROTEIN 7.2 g/dL (6.4-8.9); TRIGLYCERIDES 81 mg/dL (48-352); VLDL CHOLESTEROL 16 mg/dL
[2023-05-25 12:23] LABS: PLATELET ESTIMATE, MANUAL NORMAL (130-450,000) (NORMAL); PLATELET MORPHOLOGY NORMAL APPEARANCE (NORMAL); RBC MORPHOLOGY (MULTIPLE) NORMAL APPEARANCE (NORMAL); WBC MORPHOLOGY (MULTIPLE) NORMAL APPEARANCE (NORMAL)
== END 2023-05-25 08:06 | disposition home or self-care (01) ==
LOC: LAB.N 08:05
PROVIDERS: ATTEND Nurse Practitioner
DX: R73.03 Prediabetes (principal); Z13.220 Encounter for screening for lipoid disorders; R53.83 Other fatigue; R31.9 Hematuria, unspecified; D72.819 Decreased white blood cell count, unspecified
CPT/HCPCS: 36415; 80053; 80061; 83036; 83721; 85025